=== PATIENT | male | born 2000 | race Caucasian/White ===

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

== ENCOUNTER → 2021-05-31 | Outpatient (CLI) | payer MEDICAID | LOC: M OUTALCOH 07:45 | PROVIDERS: ATTEND Psychiatry & Neurology Psychiatry | DX: F15.20 Other stimulant dependence, uncomplicated (principal); F12.20 Cannabis dependence, uncomplicated ==

== ENCOUNTER → 2021-06-14 | Outpatient (RCR) | payer MEDICAID | LOC: M OUTALCOH 06-07 13:00 | PROVIDERS: ATTEND Psychiatry & Neurology Psychiatry | DX: F15.20 Other stimulant dependence, uncomplicated (principal); F12.20 Cannabis dependence, uncomplicated; Z72.0 Tobacco use ==

== ENCOUNTER 2021-07-11 14:00 | Outpatient (RCR) | payer MEDICAID | END 2021-07-14 | LOC: M OUTALCOH 14:00 | PROVIDERS: ATTEND Psychiatry & Neurology Psychiatry | DX: F15.20 Other stimulant dependence, uncomplicated (principal); F12.20 Cannabis dependence, uncomplicated; Z72.0 Tobacco use ==

== ENCOUNTER 2021-08-08 13:29 | Outpatient (RCR) | payer MEDICAID | END 2021-08-14 | LOC: M OUTALCOH 13:29 | PROVIDERS: ATTEND Psychiatry & Neurology Psychiatry | DX: F15.20 Other stimulant dependence, uncomplicated (principal); F12.20 Cannabis dependence, uncomplicated; Z72.0 Tobacco use ==

== ENCOUNTER 2021-09-07 16:00 | Outpatient (RCR) | payer MEDICAID | END 2021-09-13 | LOC: M OUTALCOH 16:00 | PROVIDERS: ATTEND Psychiatry & Neurology Psychiatry | DX: F15.20 Other stimulant dependence, uncomplicated (principal); F12.20 Cannabis dependence, uncomplicated; Z72.0 Tobacco use ==

== ENCOUNTER 2021-10-05 16:00 | Outpatient (RCR) | payer MEDICAID | END 2021-10-14 | LOC: M OUTALCOH 16:00 | PROVIDERS: ATTEND Psychiatry & Neurology Psychiatry | DX: F15.20 Other stimulant dependence, uncomplicated (principal); F12.20 Cannabis dependence, uncomplicated; Z72.0 Tobacco use ==

== ENCOUNTER 2024-06-19 21:31 | Inpatient (IN) | payer MEDICAID, OTHER, SELFPAY ==
[~2024-06-19] VITALS: Ht 175.3 cm; Wt 81.9 kg
[2024-06-19 22:30] LABS: HEMATOCRIT 46.3 % (42.0-52.0); HEMOGLOBIN 15.8 g/dl (13.5-17.5); MEAN CORPUSCULAR HGB CONC 34.1 g/dl (32.0-36.5); MEAN CORPUSCULAR VOLUME 90.8 fl (80.0-96.0); PLATELET COUNT, AUTOMATED 248 10^3/uL (150-450); WHITE BLOOD COUNT 6.5 10^3/uL (4.0-10.0)
[2024-06-19 22:51] LABS: BARBITURATES URINE NEGATIVE (NEGATIVE); BENZODIAZEPINES URINE NEGATIVE (NEGATIVE); CANNABINOIDS URINE NEGATIVE (NEGATIVE); COCAINE METABOLITE URINE NEGATIVE (NEGATIVE); METHADONE URINE NEGATIVE (NEGATIVE); OPIATES URINE NEGATIVE (NEGATIVE); PHENCYCLIDINE URINE NEGATIVE (NEGATIVE)
[2024-06-19 22:52] LABS: AMPHETAMINES LEVEL URINE POSITIVE (NEGATIVE)
[2024-06-19 23:08] LABS: ETHYL ALCOHOL (ETHANOL) < 0.003 % (0.000-0.010)
[2024-06-19 23:10] LABS: ALBUMIN 4.9 G/DL (3.2-5.2); ALKALINE PHOSPHATASE 49 U/L (46-116); ALT/SGPT 22 U/L (7.0-40); AST/SGOT 16 U/L (<34); BILIRUBIN,DIRECT 0.2 MG/DL (<0.4); BILIRUBIN,TOTAL 0.6 MG/DL (0.3-1.2); BLOOD UREA NITROGEN 10 MG/DL (9-23); CALCIUM LEVEL 10.1 MG/DL (8.5-10.1); CARBON DIOXIDE LEVEL 31 MMOL/L (20-31); CHLORIDE LEVEL 103 MMOL/L (98-107); CREATININE FOR GFR 1.14 MG/DL (0.70-1.30); GLOMERULAR FILTRATION RATE > 60.0 (>60); GLUCOSE, FASTING 94 MG/DL (60-100); POTASSIUM SERUM 4.1 MMOL/L (3.5-5.1); SALICYLATE LEVEL < 3.0 MG/DL (<30); SODIUM LEVEL 138 MMOL/L (136-145); TOTAL PROTEIN 8.2 G/DL (5.7-8.2)
[2024-06-19] MEDS ORDERED: HOME MED LIST COMPLETE! XX SCH (23:50)
[2024-06-20] MEDS ORDERED: ACETAMINOPHEN TAB 650MG DOSE (2X325MG) PO PRN (12:50)
[2024-06-20] MEDS ORDERED: MAALOX 30 ML SUSP *UDC PO PRN (12:50)
[2024-06-20] MEDS ORDERED: MOM 30ML SUSPENSION UDC PO PRN (12:50)
[2024-06-20] MEDS ORDERED: IBUPROFEN 400MG TAB PO PRN (12:50)
[2024-06-20 15:46] VITALS: BP 130/76; TEMP 97.4; O2SAT 100
[2024-06-20] MEDS: traZODone 50 MG TAB PO PRN (20:16)
[2024-06-21 06:34] VITALS: BP 115/63; TEMP 97.1; O2SAT 96
[2024-06-21 16:37] VITALS: BP 130/80; TEMP 97.6; O2SAT 96
[2024-06-22 06:24] VITALS: BP 121/70; TEMP 97.4; O2SAT 100
[2024-06-22 17:03] VITALS: BP 134/68; TEMP 97.7; O2SAT 100
[2024-06-23 06:24] VITALS: BP 124/60; TEMP 97.2; O2SAT 96
[2024-06-23] MEDS: risperiDONE 2 MG TAB PO SCH (10:06)
[2024-06-23 17:27] VITALS: BP 143/64; TEMP 97; O2SAT 98
[2024-06-24 06:21] VITALS: BP 138/60; TEMP 97.8; O2SAT 98
[2024-06-24 15:55] VITALS: BP 145/67; TEMP 97.6; O2SAT 100
[2024-06-25 06:15] VITALS: BP 118/57; TEMP 97.4; O2SAT 97
[2024-06-25] MEDS: BENZTROPINE 1 MG TAB PO SCH (10:41)
[2024-06-25 17:32] VITALS: BP 140/62; TEMP 97.5; O2SAT 97
[2024-06-25] MEDS: diphenhydrAMINE 25MG CAP PO PRN (20:55)
[2024-06-26 06:34] VITALS: BP 125/64; TEMP 97.3; O2SAT 100
[2024-06-26 18:25] VITALS: BP 146/80; TEMP 97.5; O2SAT 97
[2024-06-27 06:09] VITALS: BP 123/59; TEMP 97.8; O2SAT 97
[2024-06-27] MEDS ORDERED: RISP2TAB32 PO (08:35)
[2024-06-27] MEDS ORDERED: BENZ1TAB5 PO (08:35)
== END 2024-06-27 11:05 | DRG 773 ==
LOC: M ED 21:31 → M ED INP 06-20 12:47 → M PSY 06-20 15:43
PROVIDERS: ADMIT Psychiatry & Neurology Psychiatry; ATTEND Psychiatry & Neurology Psychiatry
DX: F11.988 Opioid use, unspecified with other opioid-induced disorder (principal); R45.851 Suicidal ideations; R45.850 Homicidal ideations; M54.59 Other low back pain; G47.00 Insomnia, unspecified